=== PATIENT | female | born 1950 | race African-American/Black ===

== ENCOUNTER 2022-12-20 04:10 | Observation (INO) | payer MEDICARE, OTHER, SELFPAY ==
[2022-12-20 05:00] LABS: #Eosinphils 0.1 thou/uL (0.0-0.7); #Monocytes 0.5 thou/uL (0.11-0.59); %Basophils 0.4 % (0.0-1.0); %Eosinophils 1.3 % (0.0-10.0); %Lymphocytes 18.7 % (21.0-51.0); %Monocytes 6.7 % (0.0-10.0); %Neutrophils 72.3 % (42.0-75.0); Hemoglobin 12.6 g/dL (12.0-16.0); Mean Corpuscular HGB CONC 31.8 g/dL (32.0-36.0); Mean Corpuscular Hemoglobin 30.1 pg (27.0-31.0); Mean Corpuscular Volume 94.5 fl (78.0-98.0); Mean Platelet Volume 8.9 fL (7.4-10.4); Platelet Count 238 10x3/uL (130-400); RBC Distribution Width 13.8 % (11.5-14.5); Red Blood Cell (RBC) Count 4.19 mill/uL (4.20-5.40); White Blood Cell (WBC) Count 6.9 10x3/uL (4.8-10.8)
[2022-12-20 05:22] LABS: ALT (SGPT) 16 U/L (8-55); AST (SGOT) 20 U/L (5-34); Alkaline Phosphatase 126 U/L (40-110); Anion Gap 12 mmol/L (10-20); BUN (Urea Nitrogen) 18 mg/dL (9.8-20.1); Bilirubin, Total 0.2 mg/dL (0.2-1.2); CK (CPK) 152 U/L (29-168); Calc. Creatinine Clearance 0 mL/min (70-130); Calcium 9.2 mg/dL (7.8-10.44); Carbon Dioxide 22 mmol/L (23-31); Chloride 111 mmol/L (98-107); Estimated GFR 48; Globulin 2.8 g/dL (2.4-3.5); Glucose 88 mg/dL (83-110); Lipase 27 U/L (8-78); Potassium 4.1 mmol/L (3.5-5.1); Protein, Total 6.8 g/dL (5.8-8.1); Sodium 141 mmol/L (136-145)
[2022-12-20] MEDS ORDERED: Aspirin Chewable 81 MG TAB ONE (06:34)
[2022-12-20 07:55] LABS: Troponin I Less than 0.010 ng/mL (< 0.028)
[2022-12-20 08:12] LABS: Magnesium 2.2 mg/dL (1.6-2.6)
[2022-12-20 08:54] VITALS: BMI 38.7
[2022-12-20] MEDS ORDERED: Iopamidol-370 76% 500 ML MDV (1 ML CHARGE) ONE (08:54)
[2022-12-20] MEDS ORDERED: Aspirin Chewable 81 MG TAB PO SCH (09:00)
[2022-12-20] MEDS ORDERED: ALPRAZolam 0.5 MG TAB PO SCH (09:45)
[2022-12-20 11:05] LABS: Hemoglobin A1c 5.3 % (4.0-6.0)
[2022-12-20 11:37] LABS: Troponin I Less than 0.010 ng/mL (< 0.028)
[2022-12-20 12:09] VITALS: BP 106/57; TEMP 97.9
[2022-12-21] MEDS ORDERED: Aspirin 81 mg Enteric Coated Tablet PO SCH (09:00)
== END 2022-12-20 15:38 | disposition home or self-care (01) ==
LOC: ERS 04:10 → 2SW 08:35
PROVIDERS: ADMIT Internal Medicine; ATTEND Nurse Practitioner Family
DX: R06.02 Shortness of breath (principal); R20.2 Paresthesia of skin; E86.0 Dehydration; I10 Essential (primary) hypertension; G89.29 Other chronic pain; M54.30 Sciatica, unspecified side; I07.1 Rheumatic tricuspid insufficiency; Z79.899 Other long term (current) drug therapy; Z20.822 Contact with and (suspected) exposure to COVID-19
CPT/HCPCS: 71045; 71275; 82550; 83036; 83690; 83735; 83880; 84484 ×2; 85379; 87635; 93005; 93306; 99285; G0378 ×2; 36415; 80053; 84443; 85025; Q9967